=== PATIENT | female | born 1945 | race African-American/Black ===

== ENCOUNTER 2016-09-15 21:32 | Inpatient (IN) | payer OTHER ==
[~2016-09-15] VITALS: Ht 160 cm; Wt 76.6 kg
[~2016-09-15 21:32] MED LIST: ASPIR 8181 M1 PO; CLONIDINE HCL0.2 MG PO; DILANTIN100 MG PO; DONEPEZIL HCL10 MG PO; GLUCOMETER MC; IRON325 M1 PO; KEPPRA1000 MG PO; LEVEMIR100 UNIT/2 SC; LIPITOR40 MG PO; LISINOPRIL20 MG PO; METFORMIN HCL1000 MG PO; NAMENDA PO; NAMENDA XR28 MG PO; NOVOLOG PE100 UNITS/ SC; TEST STRIPS MC; VITAMIN D2000 UNI1 PO
[2016-09-15 22:17] LABS: HEMATOCRIT 36.2 % (36.0-46.0); MCH 29.3 PG (29.0-34.0); MCHC 34.5 G/DL (30.0-36.0); MCV 84.8 FL (83-99); MEAN PLAT.VOLUME 8.5 uM^3 (9.5-12.4); PLATELET COUNT 473 K/uL (156-360); RBC DIS.WIDTH-CV 13.4 % (11.8-14.6); RBC DIS.WIDTH-SD 40.6 % (39-53); RED BLOOD COUNT 4.27 M/uL (3.80-5.20); WHITE BLOOD COUNT 12.3 K/uL (4.1-10.2)
[2016-09-15 22:28] LABS: CHLORIDE 111 mEq/L (99-109); POTASSIUM 3.4 mEq/L (3.7-5.4); SODIUM 142 mEq/L (136-147)
[2016-09-15 22:31] LABS: GLUCOSE 122 mg/dL (70-99)
[2016-09-15 22:32] LABS: ANION GAP 11 MEQ/L (2-14)
[2016-09-15 22:33] LABS: TOTAL BILIRUBIN 0.2 mg/dL (0.0-1.0)
[2016-09-15 22:34] LABS: ALKALINE PHOSPHATASE 157 IU/L (3-129); GFR ESTIMATE (CALCULATED) > 59 mL/min/
[2016-09-15 22:35] LABS: UREA NITROGEN (BUN) 10 mg/dL (9-23)
[2016-09-15 22:52] LABS: LIPASE 21 U/L (1.0-51.0)
[2016-09-16] MEDS ORDERED: BIOTENE MOISTUR45 ML PO (01:37)
[2016-09-16] MEDS ORDERED: CYANOCOBALAM1000 MCG PO (01:37)
[2016-09-16 02:21] VITALS: BP 157/89
[2016-09-16 03:29] LABS: INFLUENZA A VIRAL ANTIGEN NEGATIVE; INFLUENZA B VIRAL ANTIGEN NEGATIVE
[2016-09-16 06:47] LABS: EOSINOPHIL (%) 1.5 % (0-5); EOSINOPHIL COUNT 0.1 K/uL (0-0.3); HEMATOCRIT 34.4 % (36.0-46.0); IMMATURE GRANULOCYTE COUNT 0.1 K/uL; LYMPHOCYTE COUNT 2.8 K/uL (1.0-2.8); MCH 28.2 PG (29.0-34.0); MCV 88.2 FL (83-99); MONOCYTE (%) 6.4 % (3-12); MONOCYTE COUNT 0.6 K/uL (0-0.8); NEUTROPHIL (%) 58.9 % (45-76); NEUTROPHIL COUNT 5.2 K/uL (1.8-6.4); RBC DIS.WIDTH-SD 44.1 % (39-53); WHITE BLOOD COUNT 8.8 K/uL (4.1-10.2)
[2016-09-16 07:00] LABS: ALKALINE PHOSPHATASE 114 IU/L (3-129); ANION GAP 9 MEQ/L (2-14); CHLORIDE 113 MEQ/L (99-109); GFR ESTIMATE (CALCULATED) > 59 mL/min/; SAMPLE HEMOLYSIS CHECK 0; SAMPLE ICTERIC CHECK 0; SAMPLE LIPEMIA CHECK 0; SODIUM 139 MEQ/L (136-147); TOTAL BILIRUBIN 0.2 MG/DL (0.0-1.0); UREA NITROGEN (BUN) 9 mg/dL (9-23)
[2016-09-16 07:15] LABS: GLUCOSE 89 mg/dL (70-99); POTASSIUM 4.1 MEQ/L (3.7-5.4)
[2016-09-16 07:29] LABS: INTERNAL CONTROL VALID? YES
[2016-09-16 07:43] VITALS: BP 118/56
[2016-09-16 09:03] LABS: MEAN PLAT.VOLUME 8.7 uM^3 (9.5-12.4); PLAT.SUFFICIENCY INCREASED; PLATELET CLUMPS PRESENT; PLATELET COUNT UNABLE TO REPORT K/uL (156-360)
[2016-09-16 09:27] LABS: ADD MIUA? NO; BILIRUBIN NEGATIVE; BLOOD NEGATIVE; COLOR YELLOW ((YELLOW)); GLUCOSE (STRIP) NEGATIVE; KETONES NEGATIVE; LEUKOCYTES NEGATIVE; NITRITE NEGATIVE; PROTEIN (STRIP) NEGATIVE; UROBILINOGEN 0.2 MG/DL (0.2-1.0)
[2016-09-16 09:33] LABS: SPECIFIC GRAVITY 1.092 (1.000-1.030)
[2016-09-16 13:16] LABS: ANION GAP 10 MEQ/L (2-14); CHLORIDE 110 MEQ/L (99-109); GFR ESTIMATE (CALCULATED) > 59 mL/min/; SAMPLE HEMOLYSIS CHECK 0; SAMPLE ICTERIC CHECK 0; SAMPLE LIPEMIA CHECK 0; SODIUM 140 MEQ/L (136-147); UREA NITROGEN (BUN) 8 mg/dL (9-23)
[2016-09-16 13:21] LABS: GLUCOSE 116 mg/dL (70-99)
[2016-09-16 15:25] VITALS: BP 144/70
[2016-09-16 16:35] LABS: POINT-OF-CARE METER ID UU13113725
[2016-09-16 20:00] VITALS: BP 167/87
[2016-09-16 21:58] LABS: POINT-OF-CARE METER ID UU13113725
[2016-09-17] VITALS (7 sets, daily range): BP systolic 130–191; BP diastolic 66–82
[2016-09-17 08:54] LABS: C DIFF TOXIN NEGATIVE (NEGATIVE)
[2016-09-17 08:56] LABS: PROBE CHECK PASS; SPECIMEN PROCESSING CONTROL PASS
[2016-09-17 17:30] LABS: MCH 27.6 PG (29.0-34.0); MCHC 31.9 G/DL (30.0-36.0); MCV 86.3 FL (83-99); RED BLOOD COUNT 4.17 M/uL (3.80-5.20); WHITE BLOOD COUNT 8.1 K/uL (4.1-10.2)
[2016-09-17 17:46] LABS: MEAN PLAT.VOLUME 8.8 uM^3 (9.5-12.4)
[2016-09-17 17:47] LABS: PLATELET COUNT 434 K/uL (156-360)
[2016-09-17 18:02] LABS: ALKALINE PHOSPHATASE 128 IU/L (3-129); ANION GAP 10 MEQ/L (2-14); CHLORIDE 112 MEQ/L (99-109); GFR ESTIMATE (CALCULATED) > 59 mL/min/; GLUCOSE 104 mg/dL (70-99); POTASSIUM 3.8 MEQ/L (3.7-5.4); SAMPLE HEMOLYSIS CHECK 0; SAMPLE ICTERIC CHECK 0; SAMPLE LIPEMIA CHECK 0; SODIUM 142 MEQ/L (136-147); UREA NITROGEN (BUN) 4 mg/dL (9-23)
[2016-09-17 18:06] LABS: TOTAL BILIRUBIN 0.3 MG/DL (0.0-1.0)
[2016-09-18 08:00] VITALS: BP 170/80
[2016-09-18 11:00] VITALS: BP 132/68
[2016-09-18 18:05] LABS: POINT-OF-CARE METER ID UU13113725
[2016-09-18 23:47] VITALS: BP 180/80
[2016-09-19 00:14] LABS: POINT-OF-CARE METER ID UU13113725
[2016-09-19 05:47] LABS: POINT-OF-CARE METER ID UU13113725
[2016-09-19 08:12] VITALS: BP 165/79
[2016-09-19 12:09] VITALS: BP 166/77
[2016-09-19 14:05] VITALS: BP 155/85
[2016-09-19] MEDS ORDERED: LISINOPRIL40 MG PO (14:11)
[2016-09-19] MEDS ORDERED: ASPIR-LOW81 MG PO (14:11)
[2016-09-19 15:25] VITALS: BP 157/80
[2016-09-19 16:04] VITALS: BP 157/80
== END 2016-09-19 16:57 | disposition home or self-care (01) | DRG 392 ==
LOC: EME 21:32 → 5EAST 09-16 01:18 → EDOF 09-16 01:18 → 5EAST 09-16 02:09
PROVIDERS: Hospitalist; Internal Medicine; Personal Emergency Response Attendant
DX: A08.4 Viral intestinal infection, unspecified (principal); E11.65 Type 2 diabetes mellitus with hyperglycemia; E78.5 Hyperlipidemia, unspecified; G40.909 Epilepsy, unspecified, not intractable, without status epilepticus; Z86.73 Personal history of transient ischemic attack (TIA), and cerebral infarction without residual deficits; Z79.4 Long term (current) use of insulin
CPT/HCPCS: 71010; 71020; 74177; 80048 91; 80053; 81003; 82948; 83630; 83690; 85025; 85027; 87040; 87070; 87086; 87177; 87205; 87329; 87449; 87493; 87502; 87506; 92610 GN; 93005; 94640; 94640 76; 99202; 99281; 99285; C9113; J0360; J0456; J0696; J1644; J1815; J2405; J2543; J7030; J7050

== ENCOUNTER 2016-10-03 11:01 | Emergency (ER) | payer OTHER ==
[~2016-10-03] VITALS: Ht 170.2 cm; Wt 76.7 kg
[~2016-10-03 11:01] MED LIST changes: +ASPIR-LOW81 MG PO; +BIOTENE MOISTUR45 ML PO; +CYANOCOBALAM1000 MCG PO; +LISINOPRIL40 MG PO
[2016-10-03 11:36] LABS: POINT-OF-CARE METER ID UU13113778
[2016-10-03 12:58] VITALS: BP 200/86
== END 2016-10-03 12:59 | disposition home or self-care (01) ==
LOC: EME 11:01
DX: M72.2 Plantar fascial fibromatosis (principal); E11.9 Type 2 diabetes mellitus without complications; Z86.73 Personal history of transient ischemic attack (TIA), and cerebral infarction without residual deficits
CPT/HCPCS: 73630; 82948; 99281; 99284

== ENCOUNTER 2017-03-31 01:42 | Emergency (ER) | payer OTHER ==
[~2017-03-31] VITALS: Ht 152.4 cm; Wt 73.7 kg
[2017-03-31 02:10] LABS: POINT-OF-CARE METER ID UU13113747
[2017-03-31 02:40] LABS: POINT-OF-CARE METER ID UU13113747
[2017-03-31 03:02] LABS: HEMATOCRIT 35.9 % (36.0-46.0); MCH 29.2 PG (29.0-34.0); MCHC 33.1 G/DL (30.0-36.0); MCV 88.2 FL (83-99); MEAN PLAT.VOLUME 9.2 uM^3 (9.5-12.4); PLATELET COUNT 238 K/uL (156-360); RBC DIS.WIDTH-CV 13.3 % (11.8-14.6); RBC DIS.WIDTH-SD 43.7 % (39-53); RED BLOOD COUNT 4.07 M/uL (3.80-5.20); WHITE BLOOD COUNT 9.2 K/uL (4.1-10.2)
[2017-03-31 03:10] LABS: CHLORIDE 111 mEq/L (99-109); POTASSIUM 3.3 mEq/L (3.7-5.4); SODIUM 139 mEq/L (136-147)
[2017-03-31 03:12] LABS: GLUCOSE 109 mg/dL (70-99)
[2017-03-31 03:13] LABS: ANION GAP 8 MEQ/L (2-14)
[2017-03-31 03:14] LABS: TOTAL BILIRUBIN 0.1 mg/dL (0.0-1.0)
[2017-03-31 03:16] LABS: ALKALINE PHOSPHATASE 170 IU/L (3-129); GFR ESTIMATE (CALCULATED) > 59 mL/min/
[2017-03-31 03:17] LABS: UREA NITROGEN (BUN) 14 mg/dL (9-23)
[2017-03-31 03:19] LABS: LIPASE 14 U/L (1.0-51.0)
[2017-03-31 03:23] LABS: POINT-OF-CARE METER ID UU13113747
[2017-03-31 04:34] LABS: POINT-OF-CARE METER ID UU13113747
[2017-03-31 04:50] LABS: ADD MIUA? YES; BILIRUBIN NEGATIVE; BLOOD NEGATIVE; COLOR YELLOW ((YELLOW)); GLUCOSE (STRIP) NEGATIVE; KETONES NEGATIVE; LEUKOCYTES NEGATIVE; NITRITE NEGATIVE; PROTEIN (STRIP) 100; SPECIFIC GRAVITY 1.026 (1.000-1.030); UROBILINOGEN 0.2 MG/DL (0.2-1.0)
[2017-03-31 05:03] LABS: BACTERIA NONE SEEN /HPF; EPITHELIAL CELLS RARE /HPF; HYALINE CASTS 0-5 /LPF; MUCUS TRACE /LPF; RED BLOOD CELLS 0-5 /HPF (0-5); UCUL ADDED? NO; WHITE BLOOD CELLS 0-5 /HPF (0-5)
[2017-03-31 05:40] VITALS: BP 137/79
== END 2017-03-31 05:40 | disposition home or self-care (01) ==
LOC: EME → EDBD 01:42 → EME 01:42
PROVIDERS: Emergency Medicine
DX: E11.649 Type 2 diabetes mellitus with hypoglycemia without coma (principal); Z79.4 Long term (current) use of insulin; E87.6 Hypokalemia; R51 Headache; I10 Essential (primary) hypertension; Z86.73 Personal history of transient ischemic attack (TIA), and cerebral infarction without residual deficits
CPT/HCPCS: 80053; 80185; 81003; 82948; 83690; 85027; 99281; 99285